=== PATIENT | female | born 1980 | race Two or more races ===

== ENCOUNTER 2019-06-11 10:35 | Emergency (ER) | payer BC, SELFPAY ==
--- NOTE | 2019-06-11 11:04 | EDM.PDOC ---
ED HPI GENERAL MEDICAL PROBLEM - General Chief Complaint: Lower Extremity Injury/Pain Stated Complaint: STUBBED TOE Time Seen by Provider: 06/11/19 11:04 - History of Present Illness INITIAL COMMENTS - FREE TEXT/NARRATIVE: 38-year-old female presents the emergency room with a foot injury. Early this morning patient stubbed her fourth toe on the bedpost. She did give it some time to see if it would get better and it has not. Patient denies any other problems associated with this mishap. Left Feet Pain Score (Numeric/FACES): 5 - Related Data Allergies Allergy/AdvReac Type Severity Reaction Status Date / Time No Known Allergies Allergy Verified 06/11/19 10:58 Home Meds: Home Meds Cyclobenzaprine [Flexeril] 10 mg PO TID PRN 06/11/19 [History] Fluconazole [Diflucan] 50 mg PO DAILY 06/11/19 [History] Levothyroxine Sodium [Synthroid] 125 mcg PO DAILY 06/11/19 [History] Rizatriptan Benzoate [Rizatriptan] 10 mg PO DAILY 06/11/19 [History] Past Medical History Musculoskeletal History: Reports: Fibromyalgia Neurological History: Reports: Migraines Endocrine/Metabolic History: Reports: Hypothyroidism Social & Family History - Tobacco Use Smoking Status *Q: Never Smoker - Recreational Drug Use Recreational Drug Use: No Review of Systems - Review of Systems Review Of Systems: See Below Constitutional: Reports: No Symptoms Respiratory: Reports: No Symptoms Cardiovascular: Reports: No Symptoms GI/Abdominal: Reports: No Symptoms ED EXAM, GENERAL - Physical Exam Exam: See Below Exam Limited By: No Limitations General Appearance: Alert, No Apparent Distress Respiratory/Chest: No Respiratory Distress, Lungs Clear, Normal Breath Sounds Cardiovascular: Regular Rate, Rhythm, No Edema, No Murmur Extremities: Other (Examination of her left foot reveals a normal-appearing foot however her fourth toe is slightly swollen and tender no ecchymosis. Neurovascular status the foot appears to be fairly normal however she has some numbness in the bottom of this toe.) Course - Vital Signs Last Recorded V/S: Last Vital Signs Temp 37.1 C 06/11/19 10:50 Pulse 86 06/11/19 10:50 Resp 16 06/11/19 10:50 BP 139/97 H 06/11/19 10:50 Pulse Ox 98 06/11/19 10:50 - Orders/Labs/Meds Orders: Active Orders 24 hr Category Date Time Status Toes Fourth Digit Lt T3 [CR] Stat Exams 06/11/19 11:00 Taken Durable Medical Equipment for Discharge [DME for Oth 06/11/19 11:44 Ordered Discharge] [COMM] Stat - Re-Assessments/Exams Free Text/Narrative Re-Assessment/Exam: 06/11/19 12:00 X-ray examination of her toes reveals a fracture of the proximal phalanx of the fourth ray this is an oblique fracture that is closed non-comminuted does not appear to have any joint involvement. The patient's toe was mario taped using Coban to the middle toe and she is placed in a postop shoe. Departure - Departure Time of Disposition: 12:01 Disposition: Home, Self-Care 01 Clinical Impression: Fracture of phalanx of left foot, closed - Discharge Information Referrals: aDlia Arrington PA-C [Primary Care Provider] - Forms: ED Department Discharge Additional Instructions: Return to the emergency room with any questions problems or worsening symptoms. Follow-up with your regular provider in 1 week. Keep your toe mario taped to the third toe as we discussed use caution with the Coban, as it will tighten up over time. Loosen if needed. Use the postop shoe until the toe is much better. Tylenol or Motrin as needed for pain. Sepsis Event Note - Evaluation Sepsis Screening Result: No Definite Risk - Focused Exam Vital Signs: Vital Signs Temp Pulse Resp BP Pulse Ox 06/11/19 10:50 37.1 C 86 16 139/97 H 98 Date Exam was Performed: 06/11/19 Time Exam was Performed: 11:57 - My Orders Last 24 Hours: My Active Orders 06/11/19 11:00 Toes Fourth Digit Lt T3 [CR] Stat 06/11/19 11:44 Durable Medical Equipment for Discharge [DME for Discharge] [COMM] Stat - Assessment/Plan Last 24 Hours: My Active Orders 06/11/19 11:00 Toes Fourth Digit Lt T3 [CR] Stat 06/11/19 11:44 Durable Medical Equipment for Discharge [DME for Discharge] [COMM] Stat
--- NOTE | 2019-06-11 12:09 | CR ---
Left 4th toe: 4 views centered to the left 4th toe were obtained. Comparison: No previous foot or toe exam is available. Fracture is identified within the proximal phalanx of the 4th digit. Minimal displacement is seen. Soft tissue swelling is noted. No additional fracture or other bony abnormality is identified. Impression: 1. 4th toe fracture as noted above. 2. Soft tissue swelling. Diagnostic code #3 This report was dictated in [place] Standard Time
== END 2019-06-11 12:12 | disposition home or self-care (01) ==
LOC: JD.ED 10:35
DX: S92.512A Displaced fracture of proximal phalanx of left lesser toe(s), initial encounter for closed fracture (principal); G43.909 Migraine, unspecified, not intractable, without status migrainosus; E03.9 Hypothyroidism, unspecified; Z79.899 Other long term (current) drug therapy; Z79.890 Hormone replacement therapy; W22.09XA Striking against other stationary object, initial encounter
CPT/HCPCS: 73660-26-T3; 73660-T3; 99282; 99283-25